=== PATIENT | female | born 1980 | race Caucasian/White ===

== ENCOUNTER 2017-09-21 08:12 | Emergency (ER) | payer MEDICAID, OTHER ==
[~2017-09-21] VITALS: Ht 170.2 cm; Wt 104.0 kg
[~2017-09-21 08:12] MED LIST: IBUP-1594 PO; OMEP40CA37 PO; ZOF4T PO
[2017-09-21 08:22] VITALS: BP 137/82
[2017-09-21] MEDS ORDERED: ondansetron/PF 4mg/2ml inj IV ONE (08:55)
[2017-09-21] MEDS ORDERED: ketorolac tromethamine 15mg/ml inj. IV ONE (08:55)
[2017-09-21] MEDS ORDERED: normal saline 1000ML IV soln IVB ONE (08:55)
[2017-09-21 09:14] LABS: CLARITY,URINE CLEAR (Clear); COLOR,URINE YELLOW (Yellow); GLUCOSE, URINE NEGATIVE (Neg); KETONES,URINE TRACE mg/dl (Neg); LEUKOCYTE ESTERASE ,URINE NEGATIVE (Neg); NITRITES, URINE NEGATIVE (Neg); OCCULT BLOOD,URINE NEGATIVE (Neg); PH,URINE 6.5 (4.8-8.0); PROTEIN,URINE TRACE mg/dl (Neg); UROBILINOGEN,URINE 0.2 E.U/dL (0.2-1.0)
[2017-09-21 09:16] LABS: BASOPHILS % (AUTO) 0.3 % (0-1); EOSINOPHILS # (AUTO) 0.1 X10'3 (0-0.9); EOSINOPHILS % (AUTO) 0.8 % (0-6); HEMATOCRIT 40.1 % (35.0-45.0); HEMOGLOBIN 13.8 g/dl (12.0-16.0); LYMPHOCYTES # (AUTO) 3.2 X10'3 (1.1-4.8); LYMPHOCYTES % (AUTO) 38.8 % (21-51); MEAN CORPUSCULAR HEMOGLOBIN 31.1 PG (27.0-31.0); MEAN CORPUSCULAR HGB CONC 34.5 % (33.0-36.5); MEAN CORPUSCULAR VOLUME 90.3 FL (78-98); MEAN PLATELET VOLUME 7.6 FL (7.4-10.4); MONOCYTES # (AUTO) 0.4 X10'3 (0-0.9); MONOCYTES % (AUTO) 4.7 % (2-12); NEUTROPHILS # (AUTO) 4.6 X10'3 (1.8-7.7); NEUTROPHILS % (AUTO) 55.4 % (42-75); PLATELET COUNT 262 X10'3 (140-440); RED BLOOD COUNT 4.44 X10'6 (4.20-5.60); RED CELL DISTRIBUTION WIDTH 12.9 % (11.5-14.5); WHITE BLOOD COUNT 8.3 X10'3 (4.5-11.0)
[2017-09-21 09:20] LABS: UA COLLECTION TYPE CLN CATCH MIDSTREAM
[2017-09-21 09:22] LABS: BACTERIA,URINE FEW /HPF (Neg); MUCUS STRANDS FEW /LPF (Neg); RBC,URINE 0-2 /HPF (0-2); SQUAMOUS EPITHELIAL CELL,UR MANY /LPF (FEW); WBC,URINE 0-4 /HPF (0-4)
[2017-09-21 09:25] LABS: PROTHROMBIN TIME 10.3 SECONDS (9.0-12.0)
[2017-09-21 09:31] LABS: ALANINE AMINOTRANSFERASE 60 U/L (12-78); ALBUMIN 3.8 G/DL (3.4-5.0); ALBUMIN/GLOBULIN RATIO 1.1 (1.1-1.5); ALKALINE PHOSPHATASE 63 IU/L (46-116); ANION GAP 11 (8-16); ASPARTATE AMINO TRANSFERASE 26 U/L (10-37); BILIRUBIN,TOTAL 0.4 MG/DL (0.1-1.0); BLOOD UREA NITROGEN 11 MG/DL (7-18); BUN/CREATININE RATIO 16.2 (6.6-38.0); CHLORIDE 105 MMOL/L (99-107); CREATININE 0.68 MG/DL (0.40-0.90); GLUCOSE 117 MG/DL (70-104); LIPASE 111 U/L (73-393); POTASSIUM 3.7 MMOL/L (3.5-5.1); SODIUM 139 MMOL/L (135-145); TOTAL PROTEIN 7.3 G/DL (6.4-8.2); eGFR > 90 ML/MIN
[2017-09-21] MEDS ORDERED: proCHLORperazine 10 MG/2 ml inj IV ONE (10:15)
[2017-09-21] MEDS ORDERED: normal saline 1000ml 1,000 ML IV ONE (10:30)
[2017-09-21] MEDS ORDERED: famotidine/PF 10 mg/ml inj IV ONE (10:30)
[2017-09-21] MEDS ORDERED: pantoprazole 40 MG vial IV ONE (10:35)
[2017-09-21] MEDS ORDERED: PANT-47 PO (10:38)
[2017-09-21] MEDS ORDERED: ONDA4TAB9 SL (10:38)
[2017-09-21] MEDS ORDERED: HYDR-3965 PO (11:05)
== END 2017-09-21 11:45 | disposition home or self-care (01) ==
LOC: ER 08:13
DX: R10.84 Generalized abdominal pain (principal); N28.1 Cyst of kidney, acquired; R11.2 Nausea with vomiting, unspecified; Z90.49 Acquired absence of other specified parts of digestive tract; Z98.890 Other specified postprocedural states; Z88.0 Allergy status to penicillin; Z91.040 Latex allergy status; Z79.899 Other long term (current) drug therapy
CPT/HCPCS: 36415; 76700; 80053; 81001; 83690; 85025; 85610; 96361; 96374; 96375; 99285; C9113; J0780; J1885; J2405; J7030; J3490